=== PATIENT | male | born 1980 | race Caucasian/White ===

== ENCOUNTER 2018-04-29 21:05 | Emergency (ER) | payer SELFPAY ==
[2018-04-29 21:11] VITALS: BP 118/80; PULSE 62; RESP 16; TEMP 98.1
--- NOTE | 2018-04-29 21:59 | XR ---
EXAMINATION TYPE: XR elbow complete RT DATE OF EXAM: 04/29/2018 COMPARISON: NONE HISTORY: Elbow pain TECHNIQUE: 3 views FINDINGS: I see no fracture nor dislocation. There is a small spur on the olecranon process. There is no sign of elbow joint effusion. IMPRESSION: No acute abnormality of the right elbow.
--- NOTE | 2018-04-29 22:06 | ED ---
Upper Extremity HPI - General Chief Complaint: Extremity Injury, Upper Stated Complaint: Elbow pain Time Seen by Provider: 04/29/18 21:56 Source: patient, RN notes reviewed Mode of arrival: ambulatory Limitations: no limitations - History of Present Illness Initial Comments: This is a 37-year-old male who presents to the emergency department with chief complaint of right elbow injury. Patient states that he was playing volleyball approximately an hour and a half ago. He states he jumped up to spike the ball and felt a tearing sensation in his right elbow. Patient states that he has had a tendon injury in this elbow in the past. He states the pain is at the medial aspect of his right elbow and increases with flexion and extension of the right wrist. He denies any other injuries or trauma. Denies fever, chills, chest pain, shortness of breath, abdominal pain, nausea or vomiting, numbness or tingling, headache or vision changes. - Related Data Allergies Allergy/AdvReac Type Severity Reaction Status Date / Time No Known Allergies Allergy Verified 04/29/18 21:11 Review of Systems ROS Statement: Those systems with pertinent positive or pertinent negative responses have been documented in the HPI. ROS Other: All systems not noted in ROS Statement are negative. Past Medical History Additional Past Medical History / Comment(s): compressed and bulging discs. sciatica. arthritis. bilateral rotator cuff injuries. History of Any Multi-Drug Resistant Organisms: None Reported Past Surgical History: Appendectomy, Hernia Repair Additional Past Surgical History / Comment(s): vasectomy Past Psychological History: Depression Smoking Status: Current some day smoker Past Alcohol Use History: None Reported Past Drug Use History: Heroin General Exam - General Exam Comments Initial Comments: General: Awake and alert, well-developed; in no apparent distress. HEENT: Head atraumatic, normocephalic. Pupils are equal, round and reactive to light. Extraocular movements intact. Oropharynx moist without erythema or exudate. Neck: Supple. Normal ROM. Cardiovascular: Regular rate and rhythm. No murmurs, rubs or gallops. Chest symmetrical. Respiratory: Lungs clear to auscultation bilaterally. No wheezes, rales or rhonchi. Normal respiratory effort with no use of accessory muscles. Musculoskeletal: Normal range of motion of the right wrist and right elbow. Pain is elicited to the medial aspect of the right elbow with extension and flexion of the right wrist. Sensation is intact. Radial pulses are 2+ equal and palpable bilaterally. Skin: [place], warm and dry without rashes or lesions. Neurological: Alert and oriented x3. CN II-XII grossly intact. Speech is fluent and answers are appropriate. No focal neuro deficits. Psychiatric: Normal mood and affect. No overt signs of depression or anxiety noted. Limitations: no limitations Course Vital Signs 04/29/18 21:06 Temperature 98.1 F Pulse Rate 62 Respiratory 16 Rate Blood Pressure 118/80 O2 Sat by Pulse 99 Oximetry Procedures - Orthopedic Splinting/Casting Injury #1 Side: left Upper Extremity Injury Location: elbow Upper Extremity Immobilizer: posterior splint, synthetic pre-padded splint Medical Decision Making - Medical Decision Making This is a 37-year-old male who presents to the emergency department with chief complaint of right elbow injury. Patient felt a tearing sensation in his right elbow. He does report a history of tendon injury to the right elbow. Pain of the right elbow is elicited with extension and flexion of the right wrist. No obvious gross deformities. X-ray of the right elbow was obtained and revealed no acute abnormalities. This case was discussed attending physician, Dr. Marrero. Recommended splint and sling. A posterior short arm OCL splint was applied and patient tolerated well without complication. He is neurovascularly intact. Patient is to follow-up with orthopedics on Wednesday. He is provided with contact information. Vital signs are stable and patient is in no acute distress. He will be discharged home at this time. All questions answered. - Radiology Data Radiology results: report reviewed Right elbow x-ray findings: I see no fracture nor dislocation. There is a small spur on the olecranon process. There is no sign of elbow joint effusion. Impression: No acute abnormality of the right elbow. As read by Dr. Chavez. Disposition Clinical Impression: Elbow sprain Disposition: HOME SELF-CARE Condition: Good Instructions: Elbow Sprain (ED) Additional Instructions: Please follow-up with sim Mendiola on Wednesday. Please keep splint clean, dry and intact. Please follow up with primary care provider within 1-2 days. Return to emergency department if symptoms should worsen or any concerns arise. Is patient prescribed a controlled substance at d/c from ED?: No Referrals: None,Stated [Primary Care Provider] - 1-2 days Alhaji Hale MD [STAFF PHYSICIAN] - 1-2 days Time of Disposition: 23:06
== END 2018-04-29 23:20 | disposition home or self-care (01) ==
LOC: EC 21:05
DX: S53.401A Unspecified sprain of right elbow, initial encounter (principal); F17.200 Nicotine dependence, unspecified, uncomplicated; X58.XXXA Exposure to other specified factors, initial encounter; Y93.68 Activity, volleyball (beach) (court)
CPT/HCPCS: 29125; 99283